=== PATIENT | female | born 1970 ===

== ENCOUNTER 2018-06-13 05:14 | Emergency (ER) | payer BC ==
[2018-06-13 05:29] VITALS: RESP 18; O2SAT 99
[2018-06-13] MEDS ORDERED: Sodium Chloride 0.9% 1,000 ML IV ONE (05:35)
[2018-06-13] MEDS ORDERED: Sodium Chloride 0.9% 1,000 ML ONE (05:52)
[2018-06-13 06:12] LABS: BASO % 0.2 % (0.0-2.0); EOS % 0.1 % (0.0-4.0); HEMOGLOBIN 13.3 g/dL (11.0-16.0); LYMPH # 0.5 K/uL (1.0-4.3); LYMPH % 7.3 % (20.0-40.0); MEAN CELL VOLUME 95.4 fL (81.0-99.0); MEAN CORPUSCULAR HGB CONC 33.5 g/dL (33.0-37.0); MONO # 0.4 K/uL (0.0-0.8); MONO % 5.5 % (0.0-10.0); NEUT % 86.9 % (50.0-75.0); PLATELET COUNT 253 K/uL (130-400); RBC 4.17 Mil/uL (3.80-5.20); RED CELL DISTRIBUTION WIDTH 14.1 % (11.5-14.5); WHITE BLOOD COUNT 6.9 K/uL (4.8-10.8)
--- NOTE | 2018-06-13 06:14 | C.PDOC ---
History Of Present Illness 47 year old female presents to the ED c/o vomiting and diarrhea that started yesterday at 17:00. Patient also reports having abdominal cramp while having diarrhea. Patient denies fever, chills, rash, dysuria, hematuria, recent travel, sick contacts. Time Seen by Provider: 06/13/18 05:30 Chief Complaint (Nursing): GI Problem History Per: Patient History/Exam Limitations: no limitations Onset/Duration Of Symptoms: Days (1) Current Symptoms Are (Timing): Still Present Quality Of Discomfort: Unable To Describe Associated Symptoms: Nausea, Vomiting, Diarrhea. denies: Loss Of Appetite, Urinary Symptoms Recent travel outside of the [place]: No Additional History Per: Patient Abnormal Vaginal Bleeding: No Past Medical History Reviewed: Historical Data, Nursing Documentation, Vital Signs Vital Signs: Last Vital Signs Temp 98.9 F 06/13/18 05:24 Pulse 108 H 06/13/18 05:24 Resp 18 06/13/18 05:24 BP 135/83 06/13/18 05:24 Pulse Ox 99 06/13/18 05:24 - Medical History PMH: Asthma Surgical History: Cholecystectomy Family History: States: Unknown Family Hx - Social History Hx Alcohol Use: No Hx Substance Use: No - Immunization History Hx Tetanus Toxoid Vaccination: No Hx Influenza Vaccination: No Hx Pneumococcal Vaccination: No Review Of Systems Constitutional: Negative for: Fever, Chills Cardiovascular: Negative for: Chest Pain Respiratory: Negative for: Shortness of Breath Gastrointestinal: Positive for: Vomiting, Diarrhea. Negative for: Nausea, Abdominal Pain Genitourinary: Negative for: Dysuria Musculoskeletal: Negative for: Back Pain Skin: Negative for: Rash Physical Exam - Physical Exam Appears: Non-toxic, No Acute Distress Skin: Normal Color, Warm, Dry Head: Atraumatic, Normacephalic Eye(s): bilateral: Normal Inspection Oral Mucosa: Moist Neck: Normal ROM, Supple Chest: Symmetrical Cardiovascular: Rhythm Regular Respiratory: Normal Breath Sounds, No Rales, No Rhonchi, No Wheezing Gastrointestinal/Abdominal: Soft, No Tenderness, No Guarding, No Rebound Back: No CVA Tenderness Extremity: Normal ROM, No Tenderness, No Swelling Neurological/Psych: Oriented x3, Normal Speech, Normal Cognition Gait: Steady ED Course And Treatment - Laboratory Results Result Diagrams: 06/13/18 06:07 06/13/18 06:07 O2 Sat by Pulse Oximetry: 99 (ON RA) Pulse Ox Interpretation: Normal Progress Note: Plan: - Labs. - pepcid 20 mg IVP. - IV fluids. - Zofran 8 mg IVP. - UA. All labbs reviewed WNL. Abdomen remains soft and nontender. Patient tolerated PO while in the ED, no longer vomiting. Patient reports improvement after medications were given. Patient advised to follow up with PMD Reevaluation Time: 06:50 Reassessment Condition: Improved Disposition Counseled Patient/Family Regarding: Diagnosis, Need For Followup, Rx Given - Disposition Referrals: [facility] [Outside] Disposition: HOME/ ROUTINE Disposition Time: 06:50 Condition: STABLE Additional Instructions: Use zofran as needed for vomiting Increase PO fluids Avoid solid , greasy fods, no dairy BRAT diet ( Bananas, white rice, white toast, apples, tea, soup, gatorade, gingerale, jello) Return to ER if worse Prescriptions: Ondansetron ODT [Zofran ODT] 1 odt PO TID #10 odt Instructions: Viral Gastroenteritis, Adult (DC) Forms: [employer] (Monegasque) - Clinical Impression Clinical Impression: Gastroenteritis - 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 - Scribe Statement The provider has reviewed the documentation as recorded by the Scribe Prashant Madrigal All medical record entries made by the Scribsergey were at my direction and personally dictated by me. I have reviewed the chart and agree that the record accurately reflects my personal performance of the history, physical exam, medical decision making, and the department course for this patient. I have also personally directed, reviewed, and agree with the discharge instructions and disposition.
[2018-06-13 06:24] LABS: BLOOD UREA NITROGEN 12 mg/dL (7-17); CALCIUM 8.9 mg/dl (8.6-10.4); GFR NON-AFRICAN AMERICAN > 60; LIPASE 16 U/L (23-300)
[2018-06-13 06:25] LABS: ALB/GLOB RATIO 1.6 (1.0-2.1); ALT/SGPT 14 U/L (9-52); AST/SGOT 42 U/L (14-36)
[2018-06-13 06:59] VITALS: BP 122/81; PULSE 90; TEMP 98.8
[2018-06-13 07:57] LABS: LYMPHOCYTE 10 % (20-40); MONOCYTE 3 % (0-10); NEUTROPHIL 87 % (50-75); TOTAL CELLS COUNTED 100
[2018-06-13 07:58] LABS: PLATELET ESTIMATE NORMAL (NORMAL)
== END 2018-06-13 07:08 | disposition home or self-care (01) ==
LOC: C.ER 05:14
DX: K52.9 Noninfective gastroenteritis and colitis, unspecified (principal)
CPT/HCPCS: 80053; 83690; 85025; 96361; 96374; 96375; 99284; J2405; J7030